=== PATIENT | male | born 1985 | race Caucasian/White ===

== ENCOUNTER 2016-12-25 19:02 | Emergency (ER) | payer BC ==
[2016-12-25 19:10] VITALS: BP 119/85
[2016-12-25] MEDS ORDERED: Sodium Chloride 0.9% 10 ML Syringe FLUSH PRN (19:11)
[2016-12-25] MEDS ORDERED: Sodium Chloride 0.9% 1,000 ML IV SCH (19:15)
--- NOTE | 2016-12-25 21:59 | EDM.PDOC ---
ED HISTORY OF PRESENT ILLNESS - General Chief Complaint: Cardiovascular Problem Stated Complaint: ARTURO AMB Time Seen by Provider: 12/25/16 19:07 Source of Information: Reports: Patient History Limitations: Reports: No limitations - History of Present Illness INITIAL COMMENTS - FREE TEXT/NARRATIVE: The patient presents with near syncope and chest discomfort. The patient has had left chest discomfort and numbness with numbness down the left arm. At times this will affect his left leg. It comes and goes. Today he did not feel good at work. He went home and went for a walk and had a near syncopal episode. He went to the walk in clinic at [place] and his heart rate went down to the 50s and his BP dropped from 139 to 108 systolic. This happened when EMS arrived. He has no headache, weakness, shortness of breath or abdominal pain. He has never had this happen before. His sister had a PFO. Timing/Duration: Reports: Day(s): (2) Severity: moderate Location, General: Reports: chest Quality: Reports: Other (Numbness) Improves with: Reports: None Worsens with: Reports: None Associated Symptoms (General): Reports: chest pain. Denies: cough, fever/chills , nausea/vomiting, shortness of breath - Related Data Allergies/ADRs: Allergies Allergy/AdvReac Type Severity Reaction Status Date / Time No Known Allergies Allergy Verified 12/25/16 19:11 Home Meds: Home Meds Cetirizine HCl [Zyrtec] 10 mg PO DAILY 12/25/16 [History] Cholecalciferol (Vitamin D3) [Vitamin D] 5,000 unit PO DAILY 12/25/16 [History] Methylphenidate HCl [Ritalin] 10 mg PO TID 12/25/16 [History] Past Medical History Respiratory History: Reports: Asthma Psychiatric History: Reports: ADD - Past Surgical History HEENT Surgical History: Reports: Tonsillectomy Social & Family History - Family History Endocrine/Metabolic: Reports: Diabetes, type II - Tobacco Use Smoking Status *Q: Never Smoker Second Hand Smoke Exposure: No - Caffeine Use Caffeine Use: Reports: Coffee - Recreational Drug Use Recreational Drug Use: No ED ROS GENERAL - Review of Systems Review Of Systems: See Below Constitutional: Reports: no symptoms HEENT: Reports: No symptoms Respiratory: Reports: No Symptoms Cardiovascular: Reports: Chest pain (Numbness) Endocrine: Reports: no symptoms GI/Abdominal: Reports: No symptoms : Reports: no symptoms Musculoskeletal: Reports: no symptoms Skin: Reports: no symptoms Neurological: Reports: Numbness (Left arm and leg at times). Denies: Headache, Weakness ED EXAM, GENERAL - Physical Exam Exam: See Below Exam Limited By: No limitations General Appearance: alert, no apparent distress Ears: normal external exam Nose: normal inspection Head: atraumatic, normocephalic Neck: normal inspection Respiratory/Chest: no respiratory distress, lungs clear, normal breath sounds Cardiovascular: regular rate, rhythm, no edema, no murmur GI/Abdominal: soft, non tender, no organomegaly, no mass Extremities: normal inspection Neurological: alert, oriented, no motor/sensory deficits Course - Vital Signs Last Recorded V/S: Last Vital Signs Temp 96.5 F 12/25/16 19:05 Pulse 91 12/25/16 19:05 Resp 16 12/25/16 19:05 BP 119/85 12/25/16 19:05 Pulse Ox 100 12/25/16 19:05 - Orders/Labs/Meds Orders: Active Orders 24 hr Category Date Time Status Cardiac Monitoring [RC] . DIRECTED Care 12/25/16 19:11 Active EKG Documentation Completion [RC] STAT Care 12/25/16 19:11 Active Oxygen Therapy [RC] PRN Care 12/25/16 19:11 Active Peripheral IV Care [RC] . DIRECTED Care 12/25/16 19:11 Active Chest 1V Frontal [CR] Stat Exams 12/25/16 19:12 Taken Head wo Cont [CT] Stat Exams 12/25/16 21:04 Taken Sodium Chloride 0.9% [Normal Saline] 1,000 ml Med 12/25/16 19:15 Active IV .BOLUS Sodium Chloride 0.9% [Saline Flush] Med 12/25/16 19:11 Active 10 ml FLUSH ASDIRECTED PRN Peripheral IV Insertion Adult [OM.PC] Stat Oth 12/25/16 19:11 Ordered Medication Orders Sodium Chloride (Normal Saline) 1,000 mls @ 1,000 mls/hr IV .BOLUS JACLYN Last Admin: 12/25/16 19:19 Dose: 1,000 mls/hr Sodium Chloride (Saline Flush) 10 ml FLUSH ASDIRECTED PRN PRN Reason: Keep Vein Open Labs: Laboratory Tests 12/25/16 12/25/16 Range/Units 19:40 19:40 WBC 7.65 (4.23-9.07) K/mm3 RBC 5.29 (4.63-6.08) M/mm3 Hgb 15.1 (13.7-17.5) gm/L Hct 42.8 (40.1-51.0) % MCV 80.9 (79.0-92.2) fl MCH 28.5 (25.7-32.2) pg MCHC 35.3 (32.2-35.5) g/dl RDW Std Deviation 35.6 (35.1-43.9) fL Plt Count 236 (163-337) K/mm3 MPV 9.7 (9.4-12.3) fl Neut % (Auto) 46.1 (34.0-67.9) % Lymph % (Auto) 35.0 (21.8-53.1) % [place] % (Auto) 11.1 (5.3-12.2) % Eos % (Auto) 6.7 (0.8-7.0) Baso % (Auto) 0.8 (0.1-1.2) % Neut # 3.53 (1.78-5.38) K/mm3 Lymph # 2.68 (1.32-3.57) K/mm3 [place] # 0.85 H (0.30-0.82) K/mm3 Eos # 0.51 (0.04-0.54) K/mm3 Baso # 0.06 (0.01-0.08) K/mm3 Sodium 142 (136-145) mEq/L Potassium 4.1 (3.5-5.1) mEq/L Chloride 107 (98-107) mEq/L Carbon Dioxide 30 (21-32) mEq/L Anion Gap 9.1 (5-15) BUN 13 (7-18) mg/dL Creatinine 1.1 (0.7-1.3) mg/dL Est Cr Clr Drug Dosing 112.09 mL/min Estimated GFR (MDRD) > 60 (>60) mL/min BUN/Creatinine Ratio 11.8 L (14-18) Glucose 110 H (74-106) mg/dL Calcium 8.9 (8.5-10.1) mg/dL Total Bilirubin 0.5 (0.2-1.0) mg/dL AST 17 (15-37) U/L ALT 35 (16-63) U/L Alkaline Phosphatase 41 L (46-116) U/L Troponin I < 0.017 (0.00-0.056) ng/mL Total Protein 6.9 (6.4-8.2) g/dl Albumin 4.0 (3.4-5.0) g/dl Globulin 2.9 gm/dL Albumin/Globulin Ratio 1.4 (1-2) TSH 3rd Generation 1.884 (0.358-3.74) uIU/mL Meds: Medications Generic Name Dose Route Start Last Admin Trade Name Freq PRN Reason Stop Dose Admin Sodium Chloride 1,000 mls @ 1,000 mls/hr 12/25/16 19:15 12/25/16 19:19 Normal Saline IV 1,000 mls/hr .BOLUS JACLYN Administration Sodium Chloride 10 ml 12/25/16 19:11 Saline Flush FLUSH ASDIRECTED PRN Keep Vein Open - Re-Assessments/Exams Free Text/Narrative Re-Assessment/Exam: 12/25/16 21:56 I ordered an IV NS 1L bolus, EKG, CXR, and labs. His EKG shows a NSR with no acute changes. His CXR shows nothing acute. His CBC and CMP look good. His troponin is negative. I talked to the patient more and he said he also had some numbness in his left leg and so I ordered a CT of his head that was negative. His sister had a PFO and so I have ordered an echocardiogram and a holter monitor. I will have him follow up with Dr Tapia. Departure - Departure Time of Disposition: 22:00 Disposition: Home, Self-Care 01 Condition: good Clinical Impression: Near syncope, Numbness and tingling of left arm and leg Chest pain Qualifiers: Chest pain type: unspecified Qualified Code(s): R07.9 - Chest pain, unspecified Referrals: Laron Tapia Jr, MD [Primary Care Provider] - 1 Week Forms: ED Department Discharge Additional Instructions: Our radiology department will call you with a time for the echocardiogram. Please return if you are worse. - My Orders Last 24 Hours: My Active Orders 12/25/16 19:11 Cardiac Monitoring [RC] . DIRECTED EKG Documentation Completion [RC] STAT Oxygen Therapy [RC] PRN Peripheral IV Care [RC] . DIRECTED Sodium Chloride 0.9% [Saline Flush] 10 ml FLUSH ASDIRECTED PRN Peripheral IV Insertion Adult [OM.PC] Stat 12/25/16 19:12 Chest 1V Frontal [CR] Stat 12/25/16 19:15 Sodium Chloride 0.9% [Normal Saline] 1,000 ml IV .BOLUS 12/25/16 21:04 Head wo Cont [CT] Stat - Assessment/Plan Last 24 Hours: My Active Orders 12/25/16 19:11 Cardiac Monitoring [RC] . DIRECTED EKG Documentation Completion [RC] STAT Oxygen Therapy [RC] PRN Peripheral IV Care [RC] . DIRECTED Sodium Chloride 0.9% [Saline Flush] 10 ml FLUSH ASDIRECTED PRN Peripheral IV Insertion Adult [OM.PC] Stat 12/25/16 19:12 Chest 1V Frontal [CR] Stat 12/25/16 19:15 Sodium Chloride 0.9% [Normal Saline] 1,000 ml IV .BOLUS 12/25/16 21:04 Head wo Cont [CT] Stat
--- NOTE | 2016-12-26 08:03 | CT ---
Head CT Technique: Multiple axial sections through the brain were obtained. Intravenous contrast was not utilized. Comparison: No previous intracranial imaging is available. Findings: Ventricles along with basal cisterns and sulci over the convexities are within normal limits for the patient's age. No abnormal parenchymal densities are seen. No evidence of intracranial hemorrhage. No midline shift or mass effect is seen. Bone window settings were reviewed which show no discrete calvarial abnormality. Visualized mastoid sinuses and middle ear cavities are clear. Visualized paranasal sinuses are clear. No acute calvarial abnormality is identified. Impression: 1. No acute intracranial abnormality is identified on noncontrast head CT study. Agree with preliminary report issued by [facility] (preliminary [facility] report dictated on 12/25/16, 10:25 PM Central Time) Diagnostic code #1
--- NOTE | 2016-12-26 08:40 | CR ---
Chest: Portable view of the chest was obtained. Comparison: No previous chest x-ray. Heart size and mediastinum are normal. Lungs are clear. Bony structures are grossly intact. Impression: 1. Nothing acute is identified on portable chest x-ray. Diagnostic code #1
== END 2016-12-25 22:34 | disposition home or self-care (01) ==
LOC: JD.ED 19:02
DX: R55 Syncope and collapse (principal); R07.9 Chest pain, unspecified; R20.0 Anesthesia of skin
CPT/HCPCS: 36415; 70450; 71010; 80053; 84443; 84484; 85025; 93005; 93225; 93226; J7040; 96360; 99284; 99285-25

== ENCOUNTER 2017-10-14 11:38 | Emergency (ER) | payer BC, OTHER ==
[2017-10-14 12:13] VITALS: BP 126/91
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
--- NOTE | 2017-10-14 13:09 | CT ---
Head CT Technique: Multiple axial sections through the brain were obtained. Intravenous contrast was not utilized. Comparison: Prior head CT exam of 12/25/16. Findings: Ventricles along with basal cisterns and sulci over the convexities appear within normal limits for the patient's age. No abnormal parenchymal densities are seen. No evidence of intracranial hemorrhage. No midline shift or mass effect is seen. Bone window settings were reviewed which shows no acute calvarial abnormality. Visualized sinuses are clear. Impression: 1. Nothing acute is identified on noncontrast head CT study. No significant change is seen from prior head CT exam. Diagnostic code #1
== END 2017-10-14 14:10 | disposition home or self-care (01) ==
LOC: JD.ED 11:38
DX: S06.0X0A Concussion without loss of consciousness, initial encounter (principal); Z79.899 Other long term (current) drug therapy; V49.40XA Driver injured in collision with unspecified motor vehicles in traffic accident, initial encounter
CPT/HCPCS: 70450; 70450-26; 99284; 99284-25